=== PATIENT | female | born 1965 | race Caucasian/White ===

== ENCOUNTER 2016-06-10 12:30 | Emergency (ER) | payer OTHER ==
[2016-06-10 12:35] VITALS: BP 124/74
[2016-06-10] MEDS ORDERED: hydrOXYzine HCL TAB* 25 MG PO ONE (13:23)
--- NOTE | 2016-06-10 13:23 | ED ---
Skin Complaint - HPI Summary HPI Summary: 51 female presents to ED complaining of a rash on her arms and neck that has been on going since September of 2015. Patient states it has not gone away since but has gotten worse over the past week. She was seen at the clinic multiple times for the same rash and treated for scabies with premethrin ~3 times without any improvement. Patient has been trying fragrance-free emollients but has not had any relief. She has not tried taking anti-histamines and states she could not afford the Eucerin, like she was told to use. 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 She would like a scraping of the rash today to try and find out what it is. The rash is extremely pruritic. Denies use of new perfumes, soaps, lotions, foods, and medications. She states she has been staying away from all products since the rash began. Denies excessive alcohol use. Does use tobacco. Admits to clear fluid discharge and bleeding when scratching. Denies fever, chills, edema, difficulty breathing, chest pain, rash on her trunk, or lower extremities. - History of Current Complaint Chief Complaint: EDRashSkinAbscess Stated Complaint: RASH Hx Obtained From: Patient Hx Last Menstrual Period: 1 WEEK AGO Onset/Duration: Started Weeks Ago, Worse Since - over the past week has seemed to get worse Skin Exposure Onset/Duration: Weeks Ago - ~8 months ago Timing: Constant Onset Severity: Mild Current Severity: Moderate Pain Intensity: 4 Pain Scale Used: 0-10 Numeric Skin Location: Diffuse, Face, Neck, Arm - bilateral arms, few on hands Character: Pruritus - extremely pruritic, Redness Aggravating Symptom(s): Other: - while at work using various cleaning products Alleviating Symptom(s): Nothing Associated Signs & Symptoms: Negative Related History: Possible Reaction to: Environmental Exposure - cleaning products at work - Allergy/Home Medications Allergies/Adverse Reactions: Allergies Allergy/AdvReac Type Severity Reaction Status Date / Time Penicillins Allergy Severe Swelling, Verified 06/10/16 12:32 all over body and throat Ibuprofen Allergy Intermediate "CAUSES Verified 06/10/16 12:32 PROBLEMS WITH MY SPINE" PMH/Surg Hx/FS Hx/Imm Hx Endocrine/Hematology History: Denies: Hx Anticoagulant Therapy, Hx Diabetes, Hx Thyroid Disease Cardiovascular History: Denies: Hx Hypertension Respiratory History: Denies: Hx Asthma, Hx Chronic Obstructive Pulmonary Disease (COPD) GI History: Denies: Hx Gastroesophageal Reflux Disease, Hx Ulcer History: Denies: Hx Acute Renal Failure, Hx Chronic Renal Failure Musculoskeletal History: Denies: Hx Arthritis Psychiatric History: Denies: Hx Anxiety, Hx Depression, Hx Substance Abuse - Surgical History Surgery Procedure, Year, and Place: csection 1986, RIGHT GREAT TOE Infectious Disease History: No Infectious Disease History: Denies: Hx Hepatitis, Hx Human Immunodeficiency Virus (HIV), Hx of Known/ Suspected MRSA, History Other Infectious Disease, Traveled Outside the [place] in Last 30 Days - Family History Known Family History: Positive: Other - NONCONTRIBUTORY Family History: NON CONTRIBUTORY - Social History Alcohol Use: None Substance Use Type: Reports: None Smoking Status (MU): Current Every Day Smoker Type: Cigarettes Amount Used/How Often: 1/2 PPD Review of Systems Constitutional: Negative Eyes: Negative ENT: Negative Cardiovascular: Negative Respiratory: Negative Gastrointestinal: Negative Genitourinary: Negative Musculoskeletal: Negative Skin: Other Positive: Rash Neurological: Negative Psychological: Normal All Other Systems Reviewed And Are Negative: Yes Physical Exam Triage Information Reviewed: Yes Vital Signs On Initial Exam: Initial Vitals Temp Pulse Resp BP Pulse Ox 98.4 F 71 18 124/74 100 06/10/16 12:32 06/10/16 12:32 06/10/16 12:32 06/10/16 12:32 06/10/16 12:32 Vital Signs Reviewed: Yes Appearance: Positive: Well-Appearing - sitting on stretcher, scratching upper extremities throughout exam, appear uncomfortable., No Pain Distress, Well- Nourished Skin: Positive: Warm, Skin Color Reflects Adequate Perfusion, Dry, Weeping Skin/ Lesions, Erythema @, Other - Circular erythematous lesions with some excoriation espinoza and scabs noted on bilateral upper extremities and neck. Pruritic. Some weeping, clear fluid and blood when scratched open. Discrete on upper extremities and neck, following no particular pattern. No vesicles are appreciated. They do no appear infected. No burrowing or track espinzoa appreciated and they are not visible in web space of her fingers. No lymphangitis noted. Did not appear to be eczema in nature.. Negative: Tiffanie Tracts, Lymphangitis Head/Face: Positive: Normal Head/Face Inspection Eyes: Positive: Normal, Conjunctiva Clear ENT: Positive: Normal ENT inspection, Hearing grossly normal, Pharynx normal Neck: Positive: Supple, Nontender, No Lymphadenopathy Respiratory/Lung Sounds: Positive: Clear to Auscultation, Breath Sounds Present Cardiovascular: Positive: Normal, RRR. Negative: Murmur Abdomen Description: Positive: Nontender, Soft Musculoskeletal: Positive: Normal. Negative: Edema Left, Edema Right Neurological: Positive: Normal, Sensory/Motor Intact, Alert, Oriented to Person Place, Time Psychiatric: Positive: Normal, Affect/Mood Appropriate Diagnostics - Vital Signs Vital Signs Temp Pulse Resp BP Pulse Ox 06/10/16 12:32 98.4 F 71 18 124/74 100 - Laboratory Lab Statement: Any lab studies that have been ordered have been reviewed, and results considered in the medical decision making process. Course/Dx - Course Course Of Treatment: A culture will be obtained to look for a viral or bacterial etiology. Was given oral prednisone and hydroxyzine while in ED to help with inflammation and itching. She will also be sent home on prednisone and hydroxyzine for the itching. Recommended to try Benedryl anti-itch cream OTC as well. She will be referred to Dermatology for further evaluation. - Differential Diagnoses - Skin Complaint Differential Diagnoses: Abscess, Allergic Reaction, Contact Dermatitis, Eczema, Head Lice, Local Allergic Reaction, MRSA, Scabies, Urticaria, Viral Exanthem - Diagnoses Provider Diagnoses: Rash - Physician Notifications Discussed Care Of Patient With: Dr Russell Discharge - Discharge Plan Condition: Stable Disposition: HOME Prescriptions: hydrOXYzine HCL TAB* [Atarax TAB*] 25 mg PO TID PRN #30 tab PRN Reason: Itching predniSONE TAB* [Deltasone TAB*] 40 mg PO DAILY #10 tab Patient Education Materials: Acute Rash (ED), Dermatitis (ED) Referrals: [facility] REFERRAL [Outside] Suzanna Hernandez [Medical Doctor] - Additional Instructions: Continue to avoid using new soaps, lotions and perfumes. Try using fragrance- free lotion to moisturize the skin such as Eucerin or Aveno. Do not take long, hot showers. Recommend covering arms, hands and exposed skin while at work using cleaning agents. Take prescribed medication to help with inflammation and itching. Try not to scratch the areas. Follow-up with dermatology within the next week for further evaluation. If symptoms worsen or do not improve please return to ED.
[2016-06-10] MEDS ORDERED: predniSONE TAB* 20 MG PO ONE (13:24)
--- NOTE | 2016-06-10 16:20 | ED ---
Jing Franco Erika, scribed for Holland Russell MD on 06/10/16 at 1328 . Progress - Progress Note Progress Note: Consulting on patient for MARCELO Ozuna. A 51 y/o F presents to the ED c/o an 8 month history of itching on her arms and neck. She has been treated 3x for scabies with no improvement. She has not used any anti-histamines or anti-inflammatories. Symptoms seem to be worse while at work. 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 She has not used new soaps or perfumes. She denies any excessive alcohol use. She is a smoker. Examination of her upper extremities and neck reveals multiple lesions which are discrete. They are erythematous. No vesicles are appreciated. They do no appear infected. They have been excoriated. No burrowing or track espinoza appreciated. They are not raised. They are not present in the web spaces of her her fingers. No lymphangitis noted. A culture will be obtained to look for a viral or bacterial etiology. She will be sent home on prednisone and atarax for the itching. She will follow up with Dr. Kenney and [facility] Physician Referral. Refer to Brooklyn Spangler's note. Course/Dx - Diagnoses Provider Diagnoses: Rash The documentation as recorded by the Jing ng Erika accurately reflects the service I personally performed and the decisions made by me, Holland Russell MD.
[2016-06-12 01:08] LABS: Varicella Zoster Result Negative (Negative)
== END 2016-06-10 14:19 | disposition home or self-care (01) ==
LOC: ED 12:30
DX: R21 Rash and other nonspecific skin eruption (principal); Z88.0 Allergy status to penicillin; Z88.6 Allergy status to analgesic agent; F17.210 Nicotine dependence, cigarettes, uncomplicated
CPT/HCPCS: 87070; 87077; 87186; 87205; 87529; 87798; 99282; A9270-GY; J7512